=== PATIENT | female | born 1995 | race Caucasian/White ===

== ENCOUNTER 2018-01-27 17:21 | Emergency (ER) | payer BC ==
[2018-01-27 17:34] VITALS: RESP 16; TEMP 98.1
--- NOTE | 2018-01-27 17:43 | EDPHY ---
H & P Time Seen by Provider: 01/27/18 17:26 HPI/ROS: HPI Right flank pain. 22-year-old female by private vehicle. She complains of sudden onset right- sided flank pain which she describes as a dull ache, onset 30 min prior to arrival. No history of heavy lifting or twisting of her lower back. No history of fall or other traumatic event. She reports that she has had a sense of urgency to urinate over the last 2 days but then will be able to actually urinate. She denies any abdominal pain. No radiation of the right flank pain. No loss of sensation or weakness in her lower extremities. No bowel or bladder incontinence. No fever. No history of malignancy. Last menstrual period was 50 days ago. She denies any vaginal bleeding or vaginal discharge. She has an IUD in place. ROS: Constitutional: No fever, no chills. No weakness. Respiratory: No cough. No shortness of breath. Cardiac: No chest pain, no palpitations. Gastrointestinal: No abdominal pain, no vomiting, no diarrhea. Genitourinary: No hematuria. As above. Musculoskeletal: As above. No neck pain. No myalgias or arthralgias. Skin: No rashes. Neurological: No headache. No focal weakness or altered sensation. Past medical history: Tonsillectomy. Oral surgery. Social history: Nonsmoker. Here by herself. Denies alcohol. Physical Exam: General Appearance: Alert, pleasant young female, she is not in apparent distress. This patient is responding to questions appropriately and in full sentences. This patient appears well-hydrated and well-nourished. Eyes: Pupils equal and round no pallor or injection. No lid edema, erythema or injection. Back exam: No midline thoracic, lumbar, sacral tenderness on palpation. Vague right sided upper sacroiliac area and lower right flank tenderness on palpation which is mild. No left-sided paraspinal, sacroiliac, flank tenderness on palpation. She has a negative same side and cross-eyed straight leg raise test. She is neurologically intact in all myotomes in dermatomes of the bilateral lower extremities. She has normal capillary refill in all digits of her toes. Respiratory: There are no retractions, lungs are clear to auscultation with good air movement bilaterally. Cardiovascular: Regular rate and rhythm. No murmur. Gastrointestinal: Abdomen is soft and nontender, no masses, bowel sounds normal. No focal tenderness at McBurney's point. No Jin sign. Neurological: Motor sensory function is grossly intact. Cranial nerves are normal. Gait is normal. Skin: Warm and dry, no rashes. Musculoskeletal: Neck is supple and nontender. Extremities are symmetrical. All joints range without pain or impingement. Psychiatric: No agitation. No depression. Database: EKG: Imaging: Renal ultrasound: No evidence of hydronephrosis or kidney stone on the right. Results were discussed with staff radiologist Dr. Juno Washington. Procedures: Emergency department course: Her vital signs reviewed and are normal. Urine sample was obtained. 5:55 p.m., patient re-evaluated. Currently she is not in significant pain and declines pain medication. I discussed results of her preliminary urinalysis which shows blood but not evidence of infection. I discussed diagnosis of possible kidney stone. I discussed imaging modalities. She declined CT at this time the consents to ultrasound. 6:50 p.m., patient re-evaluated. She is resting comfortably at this time. Her pain has completely resolved. I discussed the results of her urinalysis as well as ultrasound. I discussed the probability that she had a small kidney stone that has passed and therefore her pain has now suddenly gone away. This would also explain the small amount of blood in her urine. Her urinalysis does not represent infection. I do not feel she requires antibiotics at this time. She also has had no fever. I discussed getting a CT on her for further clarification of her diagnosis. She declines this. The patient competently engages in shared decision making. They demonstrate capacitance to make decisions. She feels comfortable going home at this time and is requesting discharge. She will follow up with her primary care physician for re- evaluation tomorrow and urology referral as needed. Return to emergency department precautions were thoroughly reviewed with her. All of her questions were resolved. She was discharged in good condition. Differential Diagnosis: The differential diagnosis on this patient includes but is not limited to kidney stone, urinary tract infection, pyelonephritis, sacroiliac strain. Epidural compression syndrome, AAA, epidural abscess, acute spinal injury unlikely. This represents a partial list of diagnoses considered. These considerations are based on history, physical exam, past history, reassessment and diagnostic testing. Smoking Status: Never smoked Constitutional: Initial Vital Signs Temperature (C) 36.7 C 01/27/18 17:30 Heart Rate 76 01/27/18 17:30 Respiratory Rate 16 01/27/18 17:30 Blood Pressure 117/88 H 01/27/18 17:30 O2 Sat (%) 100 01/27/18 17:30 O2 Delivery Mode Room Air Allergies/Adverse Reactions: No Known Allergies Allergy (Verified 01/27/18 17:29) Home Medications: Medication Instructions Recorded NK [No Known Home Meds] 01/27/18 Medical Decision Making - Diagnostics Imaging Results: Imaging Impressions Abdomen/Pelvis Ultrasound 01/27/18 17:44 Impression: No evidence for nephrolithiasis or hydronephrosis in either kidney. Results called and discussed with Lex Castellano MD, on 01/27/2018, 18: 32. - Data Points Laboratory Results: 01/27/18 01/27/18 17:27 17:27 Urine Color YELLOW Urine Appearance HAZY Urine pH 5.5 (5.0-7.5) Ur Specific [place] >= 1.030 (1.002-1.030) Urine Protein NEGATIVE (NEGATIVE) Urine Ketones NEGATIVE (NEGATIVE) Urine Blood 2+ H (NEGATIVE) Urine Nitrate NEGATIVE (NEGATIVE) Urine Bilirubin NEGATIVE (NEGATIVE) Urine Urobilinogen 0.2 EU EU (0.2-1.0) Ur Leukocyte Esterase NEGATIVE (NEGATIVE) Urine RBC 5-10 /hpf H /hpf (0-3) Urine WBC 1-3 /hpf /hpf (0-3) Ur Epithelial Cells 2+ /lpf H /lpf (NONE-1+) Amorphous Sediment 1+ /hpf /hpf (NONE-1+) Urine Bacteria 2+ /hpf H /hpf (NONE SEEN) Urine Mucus 3+ /lpf H /lpf (NONE-1+) Urine Glucose NEGATIVE (NEGATIVE) Urine Test NEGATIVE Departure - Departure Disposition: Home, Routine, Self-Care Clinical Impression: Right flank pain Condition: Good Instructions: Kidney Stones (ED), Flank Pain (ED) Additional Instructions: Read and follow provided instructions. Follow-up with your primary care physician in the next 1-2 days for re- evaluation. Your primary care physician can refer you to a urologist as needed. Take ibuprofen for pain. Ibuprofen dosin mg every 6 hours with meals for the next 3 days only. Take only as needed for pain. Return to the emergency department for worsening pain, fever, nausea and vomiting, discomfort with urination or other serious concerns. Referrals: [facility] [Other] - As per Instructions
[2018-01-27 19:04] VITALS: BP 129/67; PULSE 71; O2SAT 98
== END 2018-01-27 19:01 | disposition home or self-care (01) ==
LOC: CED 17:21
DX: R10.9 Unspecified abdominal pain (principal)
CPT/HCPCS: 76770-PO; 81003-PO; 81015-PO; 81025-PO

== ENCOUNTER 2018-02-06 04:32 | Emergency (ER) | payer BC ==
[2018-02-06] MEDS ORDERED: ONDANSETRON DISINTEGRATING 4 MG TAB PO ONE (04:41)
[2018-02-06] MEDS ORDERED: ONDANSETRON DISINTEGRATING 4 MG TAB ONE (04:42)
[2018-02-06 04:47] VITALS: O2SAT 98
--- NOTE | 2018-02-06 04:49 | EDPHY ---
H & P Stated Complaint: R Flank pain since 1930 yesterday, vomiting. Time Seen by Provider: 02/06/18 04:48 HPI/ROS: HPI CHIEF COMPLAINT: Abdominal pain, flank pain, nausea vomiting HISTORY OF PRESENT ILLNESS: Patient is a 22-year-old female, she was recently seen here in the emergency room for kidney stone evaluation at that time she had unremarkable ultrasound trace blood in her urine and was thought that she may have passed a kidney stone as her pain resolved. She presents back to the emergency room at 4:45 a.m. In the morning with ongoing right flank pain that radiates into her right abdomen. She distally reports that she has had vomiting all night. This started around midnight. Multiple episodes of on nonbilious, nonbloody vomit. Denies any chest pain or shortness of breath, denies fever. Does feel nauseous. Main thing that brought her to the emergency room tonight as nausea/vomiting. She does complain of 6/10 right flank pain radiates into her right lower abdomen. Endorses urinary frequency but no dysuria. I did review her previous ER visit. Past Medical History: No significant medical history Past Surgical History: No significant surgical history Social History: Denies drugs alcohol tobacco. Family History: Noncontributory ROS REVIEW OF SYSTEMS: A comprehensive 10 point review of systems is otherwise negative aside from elements mentioned in the history of present illness. Exam Constitutional appears well nontoxic triage nursing summary reviewed, vital signs reviewed, awake/alert. Eyes normal conjunctivae and sclera, EOMI, PERRLA. HENT normal inspection, atraumatic, moist mucus membranes, no epistaxis, neck supple/ no meningismus, no raccoon eyes. Respiratory clear to auscultation bilaterally, normal breath sounds, no respiratory distress, no wheezing. Cardiovascular rate normal, regular rhythm, no murmur, no edema, distal pulses normal. Gastrointestinal soft abdomen, very mild right lower quadrant pain, no peritoneal signs no rebound, no guarding, normal bowel sounds, no distension, no pulsatile mass. Genitourinary mild right CVA tenderness on exam Musculoskeletal no midline vertebral tenderness, full range of motion, no calf swelling, no tenderness of extremities, no meningismus, good pulses, neurovascularly intact. Skin pink, warm, & dry, no rash, skin atraumatic. Neurologic awake, alert and oriented x 3, AAOx3, moves all 4 extremities equally, motor intact, sensory intact, CN II-XII intact, normal cerebellar, normal vision, normal speech. Psychiatric normal mood/affect. Heme/Lymph/Immune no lymphadenopathy. Differential diagnosis includes but is not limited to and in no particular order : Bowel obstruction, appendicitis, gallbladder disease, diverticulitis, colitis , enteritis, perforated viscus, gastritis, GERD, esophagitis, urinary tract infection, pyelonephritis, kidney stones Medical Decision Making: Plan for this patient IV establishment IV fluid bolus , 1 L normal saline, IV Zofran 4 mg for nausea, 0.5 mg for Dilaudid, check basic blood work, serum , CT scan abdomen pelvis with IV contrast rule out pyelonephritis, kidney stone, appendicitis Re-evaluation: 0604: CT scan abdomen pelvis with IV contrast shows a 3 mm x 3 mm distal UVJ stone. CT scan abdomen pelvis with IV contrast shows a normal appendix, shows a 3 x 3 mm UVJ stone. Additionally discussed the malposition of the IUD. I will update the patient on this. Plan for the patient: Will place on Keflex, Zofran, Flomax, [place] for pain control. Recommend close follow-up with Neurology. Distally encourage lots of fluids. Additionally went over IUD is appears to be somewhat malposition. I do recommend she follows up with her OBGYN to have this adjusted. Or have a follow -up ultrasound to make sure it is in appropriate position. She understands. Source: Patient - Personal History LMP (Females 10-55): 1-7 Days Ago Current Tetanus/Diphtheria Vaccine: Yes Current Tetanus Diphtheria and Acellular Pertussis (TDAP): Yes Tetanus Vaccine Date: 2016 - Medical/Surgical History Hx Asthma: No Hx Chronic Respiratory Disease: No Hx Diabetes: No Hx Cardiac Disease: No Hx Renal Disease: No Hx Cirrhosis: No Hx Alcoholism: No Hx HIV/AIDS: No Hx Splenectomy or Spleen Trauma: No Other PMH: Medhx-exercise induced asthma as a child, recent kidney stone. Surg- oral, tonsils - Social History Smoking Status: Never smoked Constitutional: Initial Vital Signs Temperature (C) 36.6 C 02/06/18 04:33 Heart Rate 67 02/06/18 04:33 Respiratory Rate 18 02/06/18 04:33 Blood Pressure 123/82 H 02/06/18 04:33 O2 Sat (%) 98 02/06/18 04:33 O2 Delivery Mode Room Air Allergies/Adverse Reactions: No Known Allergies Allergy (Verified 02/06/18 04:33) Home Medications: Medication Instructions Recorded Cephalexin [Keflex] 500 mg PO Q6H #28 cap 02/06/18 Hydrocodone/APAP 5/325 [[place] 1 - 2 tab PO Q4H PRN #10 tab 02/06/18 5/325] Iud 02/06/18 Ondansetron HCl [Zofran] 4 mg PO Q4-6PRN PRN #10 tablet 02/06/18 Tamsulosin HCl [Flomax] 0.4 mg PO DAILY #10 cap 02/06/18 Medical Decision Making - Data Points Laboratory Results: Laboratory Results 02/06/18 04:52 02/06/18 04:52 02/06/18 02/06/18 02/06/18 04:52 04:52 04:52 WBC 9.45 10^3/uL 10^3/uL (3.80-9.50) RBC 4.52 10^6/uL 10^6/uL (4.18-5.33) Hgb 13.3 g/dL g/dL (12.6-16.3) Hct 39.3 % % (38.0-47.0) MCV 86.9 fL fL (81.5-99.8) MCH 29.4 pg pg (27.9-34.1) MCHC 33.8 g/dL g/dL (32.4-36.7) RDW 12.6 % % (11.5-15.2) Plt Count 335 10^3/uL 10^3/uL (150-400) MPV 8.8 fL fL (8.7-11.7) Neut % (Auto) 72.3 % % (39.3-74.2) Lymph % (Auto) 14.7 % L % (15.0-45.0) [place] % (Auto) 11.6 % % (4.5-13.0) Eos % (Auto) 0.5 % L % (0.6-7.6) Baso % (Auto) 0.5 % % (0.3-1.7) Nucleat RBC Rel Count 0.0 % % (0.0-0.2) Absolute Neuts (auto) 6.82 10^3/uL H 10^3/uL (1.70-6.50) Absolute Lymphs (auto) 1.39 10^3/uL 10^3/uL (1.00-3.00) Absolute Monos (auto) 1.10 10^3/uL H 10^3/uL (0.30-0.80) Absolute Eos (auto) 0.05 10^3/uL 10^3/uL (0.03-0.40) Absolute Basos (auto) 0.05 10^3/uL 10^3/uL (0.02-0.10) Absolute Nucleated RBC 0.00 10^3/uL 10^3/uL (0-0.01) Immature Gran % 0.4 % % (0.0-1.1) Immature Gran # 0.04 10^3/uL 10^3/uL (0.00-0.10) Sodium 142 mEq/L mEq/L (135-145) Potassium 4.1 mEq/L mEq/L (3.5-5.2) Chloride 105 mEq/L mEq/L (97-110) Carbon Dioxide 23 mEq/l mEq/l (22-31) Anion Gap 14 mEq/L mEq/L (8-16) BUN 20 mg/dL mg/dL (7-23) Creatinine 1.3 mg/dL H mg/dL (0.6-1.0) Estimated GFR 51 Glucose 114 mg/dL H mg/dL (70-100) Calcium 9.4 mg/dL mg/dL (8.5-10.4) Total Bilirubin 0.7 mg/dL mg/dL (0.1-1.4) Conjugated Bilirubin 0.2 mg/dL mg/dL (0.0-0.5) Unconjugated Bilirubin 0.5 mg/dL mg/dL (0.0-1.1) AST 17 IU/L IU/L (14-46) ALT 20 IU/L IU/L (9-52) Alkaline Phosphatase 70 IU/L IU/L (38-126) Total Protein 8.2 g/dL g/dL (6.3-8.2) Albumin 4.4 g/dL g/dL (3.5-5.0) Lipase 125 IU/L IU/L (23-300) Beta HCG, Qual NEGATIVE Urine Color Urine Appearance Urine pH Ur Specific [place] Urine Protein Urine Ketones Urine Blood Urine Nitrate Urine Bilirubin Urine Urobilinogen Ur Leukocyte Esterase Urine Glucose 02/06/18 04:40 WBC RBC Hgb Hct MCV MCH MCHC RDW Plt Count MPV Neut % (Auto) Lymph % (Auto) [place] % (Auto) Eos % (Auto) Baso % (Auto) Nucleat RBC Rel Count Absolute Neuts (auto) Absolute Lymphs (auto) Absolute Monos (auto) Absolute Eos (auto) Absolute Basos (auto) Absolute Nucleated RBC Immature Gran % Immature Gran # Sodium Potassium Chloride Carbon Dioxide Anion Gap BUN Creatinine Estimated GFR Glucose Calcium Total Bilirubin Conjugated Bilirubin Unconjugated Bilirubin AST ALT Alkaline Phosphatase Total Protein Albumin Lipase Beta HCG, Qual Urine Color YELLOW Urine Appearance CLEAR Urine pH 6.0 (5.0-7.5) Ur Specific [place] 1.025 (1.002-1.030) Urine Protein NEGATIVE (NEGATIVE) Urine Ketones NEGATIVE (NEGATIVE) Urine Blood NEGATIVE (NEGATIVE) Urine Nitrate NEGATIVE (NEGATIVE) Urine Bilirubin NEGATIVE (NEGATIVE) Urine Urobilinogen 0.2 EU EU (0.2-1.0) Ur Leukocyte Esterase NEGATIVE (NEGATIVE) Urine Glucose NEGATIVE (NEGATIVE) Medications Given: Discontinued Medications Hydromorphone HCl (Dilaudid) 0.5 mg IVP EDNOW ONE Stop: 02/06/18 04:56 Last Admin: 02/06/18 05:09 Dose: 0.5 mg Sodium Chloride (Ns) 1,000 mls @ 0 mls/hr IV EDNOW ONE; Wide Open PRN Reason: Protocol Stop: 02/06/18 04:51 Last Admin: 02/06/18 05:18 Dose: 1,000 mls Sodium Chloride (Ns) 1,000 mls @ 0 mls/hr IV ONCE ONE PRN Reason: Wide Open Stop: 02/06/18 04:56 Last Admin: 02/06/18 05:03 Dose: 1,000 mls Ondansetron HCl (Zofran Odt) 4 mg PO EDNOW ONE Stop: 02/06/18 04:42 Last Admin: 02/06/18 04:44 Dose: 4 mg Ondansetron HCl (Zofran) 4 mg IVP EDNOW ONE Stop: 02/06/18 04:56 Last Admin: 02/06/18 05:03 Dose: 4 mg Departure - Departure Disposition: Home, Routine, Self-Care Clinical Impression: Kidney stone Condition: Good Instructions: Kidney Stones (ED) Additional Instructions: 1. Drink lots of fluids stay well-hydrated. 2. Antibiotics as prescribed. 3. Flomax as prescribed. 4. Follow up with Urology. 5. Follow up with her OBGYN about your IUD placement. Prescriptions: Cephalexin [Keflex] 500 mg PO Q6H #28 cap Hydrocodone/APAP 5/325 [[place] 5/325] 1 - 2 tab PO Q4H PRN #10 tab PRN Reason: Pain, Moderate Ondansetron HCl [Zofran] 4 mg PO Q4-6PRN PRN #10 tablet PRN Reason: Nausea/Vomiting, Use 1st Tamsulosin HCl [Flomax] 0.4 mg PO DAILY #10 cap
[2018-02-06] MEDS ORDERED: NS 1,000 ML IV ONE ×2 (04:50→04:55)
[2018-02-06] MEDS ORDERED: ONDANSETRON 4 MG/2 ML VIAL IVP ONE (04:55)
[2018-02-06] MEDS ORDERED: HYDROmorphONE/DILAUDID 2 MG/ML INJ IVP ONE (04:55)
[2018-02-06 05:00] LABS: PLATELET COUNT 335 10^3/uL (150-400)
[2018-02-06] MEDS ORDERED: IOPAMIDOL (ISOVUE-300) 100 ML BTL ONE (05:19)
[2018-02-06 05:44] VITALS: RESP 14
[2018-02-06 06:32] VITALS: BP 111/81; PULSE 63; TEMP 98.4
== END 2018-02-06 06:25 | disposition home or self-care (01) ==
LOC: CED 04:32
DX: N20.0 Calculus of kidney (principal); J45.909 Unspecified asthma, uncomplicated; E86.9 Volume depletion, unspecified
CPT/HCPCS: 74177-PO; 80048-PO; 80076-PO; 81003-PO; 83690-PO; 84703-PO; 85025-PO; 96374; J1170; J2405; Q9967